=== PATIENT | male | born 1990 | race Caucasian/White ===

== ENCOUNTER 2021-11-14 15:19 | Emergency (ER) | payer MEDICAID ==
[~2021-11-14] VITALS: Ht 172.7 cm; Wt 68.9 kg
--- NOTE | 2021-11-14 15:29 | NUR ---
pt named called, admitting informed pt was in bathroom, will attempt to call after.
--- NOTE | 2021-11-14 15:40 | NUR ---
pt name called in lobby and outside no response.
[2021-11-14 15:58] VITALS: BP 121/72
--- NOTE | 2021-11-14 16:11 | NUR ---
31 y/o male, c/o left hand pain, swelling, redness and edema on 3rd digit that started this morning. pt states he fell asleep, woke up, suspects something may have bit him in his sleep. Cap refill <2 seconds at this time. Pt is able to move his fingers at this time. 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 Pain is curently 10/10 in L hand pmh: denies nka med: tylenol prior to arrival
--- NOTE | 2021-11-14 16:19 | NUR ---
XRAY AT PATIENT BEDSIDE
--- NOTE | 2021-11-14 16:46 | NUR ---
PT CURRENTLY REFUSING BLOOD WORK, IV AND ANY IV ANTIBIOTICS AT THIS TIME. INFORMED PATIENT THAT THE INFECTION COULD SPREAD AND RESULT IN THE LOSS OF HIS HAND. INFORMED PATIENT THE IMPORTANCE OF RECEIVING BLOODWORK AND IV TO DETERMINE TYPE OF INFECTION AND COURSE OF TREATMENT NEEDED. PT CONTINUES TO REFUSE AND TREATMENT AT THIS TIME AND REQUESTED TO FOR ORAL ANTIBIOTICS. ER MADE AWARE
[2021-11-14] MEDS ORDERED: CEPH-588 PO (16:58)
[2021-11-14] MEDS ORDERED: SULF-59 PO (16:58)
[2021-11-14] MEDS ORDERED: ACET-9527 PO (16:59)
--- NOTE | 2021-11-14 17:10 | NUR ---
WITNESSED ER MD DR. RENEE SPEAKING WITH PATIENT AT BEDSIDE EXPRESSING IMPORTANCE OF RECEIVING BLOODWORK AND IV MEDICATIONS. ER MD EXPLAINED TO PATIENT POSSIBLE DX AND POSSIBLE COMPLICATIONS FROM [facility] OF [place]. PATIENT STILL REFUSING AT THIS TIME AND WOULD LIKE TO AMA.
[2021-11-14 17:16] VITALS: BP 121/72
--- NOTE | 2021-11-14 17:17 | NUR ---
Patient does not wish to proceed with medical care recommended by DR. RENEE. Patient given information related to possible complications, up to and including , which could occur as a result of leaving hospital at this time. Patient verbalizes understanding of risks involved leaving against medical advice. Patient has signed AMA form. PT PROVIDED WITH D/C PAPERWORK WELL
== END 2021-11-14 17:17 | disposition left against medical advice (07) ==
LOC: MED 15:19
DX: L03.114 Cellulitis of left upper limb (principal); Z79.899 Other long term (current) drug therapy
CPT/HCPCS: 73130; 99291; Q0092

== ENCOUNTER 2022-06-03 21:25 | Emergency (ER) | payer MEDICAID ==
[~2022-06-03] VITALS: Ht 172.7 cm; Wt 74.8 kg
[~2022-06-03 21:25] MED LIST: ACET-9527 PO; CEPH-588 PO; SULF-59 PO
--- NOTE | 2022-06-03 21:38 | NUR ---
CALLED TO TRIAGE, NO ANSWER
[2022-06-03 21:56] VITALS: BP 115/72
--- NOTE | 2022-06-03 22:02 | NUR ---
TO LOBBY FOLLOWING TRIAGE
[2022-06-03] MEDS ORDERED: VANCOMYCIN 1,000 MG in DEXTROSE 5% 250 ML IV ONE (23:45)
[2022-06-03] MEDS ORDERED: IBUPROFEN 800 MG TAB PO ONE (23:45)
[2022-06-03] MEDS ORDERED: SULFAMETH/TRIMETH DS 800/160MG 1 TAB PO ONE (23:45)
--- NOTE | 2022-06-03 23:50 | NUR ---
AMBULATED TO BED 8
[2022-06-04 00:18] LABS: BASOPHILS % (AUTO) 0.4 % (0.0-2.0); EOSINOPHILS # (AUTO) 0.4 K/uL (0-0.4); EOSINOPHILS % (AUTO) 3.4 % (0.0-4.0); HEMATOCRIT 37.1 % (36-52); HEMOGLOBIN 12.5 g/dL (12.0-18.0); LYMPHOCYTES # (AUTO) 3.6 K/uL (2.0-11.5); LYMPHOCYTES % (AUTO) 32.9 % (20.5-51.1); MEAN CORPUSCULAR HEMOGLOBIN 31 pg (27-31); MEAN CORPUSCULAR HGB CONC 34 g/dL (33-37); MEAN CORPUSCULAR VOLUME 90.3 fL (80-94); MONOCYTES # (AUTO) 0.8 K/uL (0.8-1.0); MONOCYTES % (AUTO) 7.5 % (1.7-9.3); NEUTROPHILS # (AUTO) 6.1 K/uL (1.8-7.7); NEUTROPHILS % (AUTO) 55.8 % (42.2-75.2); PLATELET COUNT (AUTO) 299 K/uL (140-450); RED BLOOD CELL COUNT(AUTO) 4.11 MIL/uL (4.20-6.10); RED CELL DISTRIBUTION WIDTH 13.8 % (11.6-13.7); WHITE BLOOD COUNT (AUTO) 10.9 K/uL (4.8-10.8)
--- NOTE | 2022-06-04 00:31 | NUR ---
PATIENT MEDICATED PER ORDERS. TOLERATED WELL
[2022-06-04 00:36] LABS: ALBUMIN 3.5 g/dL (3.4-5.0); ANION GAP 13.9 (8-16); CARBON DIOXIDE 26.6 mmol/L (21-32); CREATININE 0.8 mg/dL (0.6-1.3); POTASSIUM 3.5 mmol/L (3.5-5.1); TOTAL BILIRUBIN 0.4 mg/dL (0.0-1.0)
[2022-06-04] MEDS ORDERED: VANCOMYCIN 1,000 MG VIAL ONE (00:37)
--- NOTE | 2022-06-04 01:07 | NUR ---
31YR OLD MALE BIB SELF C/O SWELLING AND PAIN TO L LEG. SWELLING REDDEND TO MID LOWER LL. PT DENIES ANY KNOWN INJURY OR ANY OPEN WOUNDS. PT IS A&OX4. RESP EVEN AND UNLABORED. SKIN WARM DRY AND INTACT. WAS SEEN HERE A FEW DAYS FOR THE SAME C/O. SMALL ABCESS FORMING POSTERIOR TO LL. NEW ONSET. ' NKDA NO MED
--- NOTE | 2022-06-04 01:13 | NUR ---
ULTRASOUND AT BEDSIDE
--- NOTE | 2022-06-04 02:22 | NUR ---
PT RESTING RESP EVEN AND UNLABORED. HOB ELEVATED. SIDE RAILS UPX1. BED AT LOWEST POSITION
--- NOTE | 2022-06-04 03:07 | NUR ---
PT IS AWAKE RESTING PENDING ULTRASOUND RESULTS FOR DISPO. HOB ELEVATED. NO DISTRESS NOTED. PT EAGER TO LEAVE. 2/10 PAIN LEVEL.
[2022-06-04] MEDS ORDERED: SULF-59 PO (03:40)
[2022-06-04] MEDS ORDERED: CEPH500T PO (03:40)
[2022-06-04] MEDS ORDERED: IBUP-1878 PO (03:40)
[2022-06-04 03:55] VITALS: BP 106/60
== END 2022-06-04 03:55 | disposition home or self-care (01) ==
LOC: MED 21:25
DX: L03.116 Cellulitis of left lower limb (principal); F17.210 Nicotine dependence, cigarettes, uncomplicated
CPT/HCPCS: 36415; 76881; 80053; 83605; 85025; 87040; 96365; 99284; J3370; Q0092

== ENCOUNTER 2023-12-04 17:31 | Emergency (ER) | payer MEDICAID ==
[~2023-12-04] VITALS: Ht 172.7 cm; Wt 74.8 kg
[~2023-12-04 17:31] MED LIST changes: +CEPH500T PO; +IBUP-1878 PO
[2023-12-04 17:40] VITALS: BP 117/60; PULSE 78; RESP 16; TEMP 98; O2SAT 100
== END 2023-12-04 19:40 | disposition home or self-care (01) ==
LOC: MED 17:31
DX: Z20.2 Contact with and (suspected) exposure to infections with a predominantly sexual mode of transmission (principal); Z11.3 Encounter for screening for infections with a predominantly sexual mode of transmission; Z79.899 Other long term (current) drug therapy
CPT/HCPCS: 81002; 87491; 99283